=== PATIENT | female | born 1950 | race Caucasian/White ===

== ENCOUNTER 2020-01-11 10:05 | Emergency (ER) | payer MEDICARE, BC ==
--- NOTE | 2020-01-11 10:21 | EDM.PDOC ---
ED HPI GENERAL MEDICAL PROBLEM - General Chief Complaint: Cardiovascular Problem Stated Complaint: Chest pain for a week Time Seen by Provider: 01/11/20 10:05 Source of Information: Reports: Patient History Limitations: Reports: No Limitations - History of Present Illness INITIAL COMMENTS - FREE TEXT/NARRATIVE: Patient states she has been having about a 2 out of 10 chest pain midsternal nonradiating for about 1 week now says it gets worse when she takes a deep breath or coughs she states she is been having a runny nose and cough intermittently since the fall secondary to allergies. She states this is nothing new her normal although she states the chest pain is little bit more aggravating. She has no known cardiovascular issues she has never had a cardio work-up She denies any shortness of breath although she states she feels a little weak over the last week as well. Says she has been eating and drinking and moving about the house normally and doing her daily activities with no issues. She has no other complaints at this time Duration: Week(s): Location: Reports: Chest Quality: Reports: Pressure Severity: Mild Improves with: Reports: Rest Worsens with: Reports: Breathing, Movement Associated Symptoms: Reports: No Other Symptoms Mid-Sternal Chest Pain Score (Numeric/FACES): 2 - Related Data Allergies Allergy/AdvReac Type Severity Reaction Status Date / Time amlodipine [From Lotrel] Allergy Cannot Verified 01/11/20 10:44 Remember amoxicillin Allergy Rash Verified 01/11/20 10:44 benazepril [From Lotrel] Allergy Cannot Verified 01/11/20 10:44 Remember latex Allergy Rash Verified 01/11/20 10:44 Home Meds: Home Meds Benzonatate [Tessalon Perle] 100 mg PO TID PRN 01/11/20 [History] Cholecalciferol (Vitamin D3) [Vitamin D3] 2,000 unit PO DAILY 01/11/20 [History] Clotrimazole/Betamethasone Dip [Lotrisone Cream] 1 dose TP BID PRN 01/11/20 [ History] Multivitamin-Min/Iron/FA/Vit K [Multi-Day Plus Minerals Tablet] 1 each PO DAILY 01/11/20 [History] Simvastatin 10 mg PO DAILY 01/11/20 [History] amLODIPine [Norvasc] 2.5 mg PO DAILY 05/04/20 [History] ED ROS GENERAL - Review of Systems Review Of Systems: See Below Constitutional: Reports: No Symptoms, Weakness. Denies: Fever, Chills, Malaise , Fatigue, Night Sweats HEENT: Reports: No Symptoms Respiratory: Reports: Pleuritic Chest Pain, Cough. Denies: Shortness of Breath , Wheezing Cardiovascular: Reports: Chest Pain. Denies: Blood Pressure Problem, Claudication, Dyspnea on Exertion, Edema, Lightheadedness, Orthopnea, Palpitations, PND, Syncope Endocrine: Reports: No Symptoms GI/Abdominal: Reports: No Symptoms : Reports: No Symptoms Musculoskeletal: Reports: No Symptoms Skin: Reports: No Symptoms Neurological: Reports: No Symptoms Psychiatric: Reports: No Symptoms Hematologic/Lymphatic: Reports: No Symptoms Immunologic: Reports: No Symptoms ED EXAM, GENERAL - Physical Exam Exam: See Below Exam Limited By: No Limitations General Appearance: Alert, WD/WN, No Apparent Distress Nose: Normal Inspection, Normal Mucosa, No Blood Throat/Mouth: Normal Inspection, Normal Lips, Normal Teeth, Normal Gums, Normal Oropharynx, Normal Voice, No Airway Compromise Neck: Normal Inspection, Supple, Non-Tender, Full Range of Motion Respiratory/Chest: No Respiratory Distress, Lungs Clear, Normal Breath Sounds, No Accessory Muscle Use, Chest Non-Tender Cardiovascular: Normal Peripheral Pulses, Regular Rate, Rhythm, No Edema, No Gallop, No JVD, No Murmur, No Rub GI/Abdominal: Normal Bowel Sounds, Soft, Non-Tender, No Organomegaly, No Distention. No: Guarding, Rigid, Rebound, Tender Back Exam: Normal Inspection, Full Range of Motion Extremities: Normal Inspection, Normal Range of Motion, Non-Tender, No Pedal Edema Neurological: Alert, Oriented, CN II-XII Intact, Normal Cognition, Normal Gait, No Motor/Sensory Deficits Psychiatric: Normal Affect, Normal Mood Skin Exam: Warm, Dry, Intact, Normal Color, No Rash Course - Vital Signs Text/Narrative:: EKG CBC BMP troponin chest x-ray aspirin All lab work within normal limits glucose is noted to be 135 EKG chest x-ray no acute processes Patient was instructed to follow-up with a primary care provider Last Recorded V/S: Last Vital Signs Temp 37.2 C 01/11/20 10:05 Pulse 93 01/11/20 10:05 Resp 16 01/11/20 10:05 BP 135/81 01/11/20 10:05 Pulse Ox 97 01/11/20 10:05 - Orders/Labs/Meds Orders: Active Orders 24 hr Category Date Time Status EKG 12 Lead [EKG Documentation Completion] [RC] STAT Care 01/11/20 10:15 Active Labs: Laboratory Tests 01/11/20 01/11/20 01/11/20 Range/Units 10:28 10:28 10:32 WBC 4.7 (4.0-10.0) x10^3/uL RBC 4.45 (4.00-5.50) x10^6/uL Hgb 12.9 (12.0-16.0) g/dL Hct 38.6 (33.0-47.0) % MCV 86.7 (78.0-93.0) fL MCH 29.0 (26.0-32.0) pg MCHC 33.4 (32.0-36.0) g/dL RDW Coeff of Maya 11.4 (10.0-15.0) % Plt Count 259 (130-400) x10^3/uL Neut % (Auto) 57.0 (50.0-80.0) % Lymph % (Auto) 26.2 (25.0-50.0) % [place] % (Auto) 12.6 H (2.0-11.0) % Eos % (Auto) 3.6 (0.0-4.0) % Baso % (Auto) 0.6 (0.2-1.2) % Sodium 145 (136-145) mmol/L Potassium 4.0 (3.5-5.1) mmol/L Chloride 108 H (98-107) mmol/L Carbon Dioxide 25 (21-32) mmol/L Anion Gap 16.0 (10-20) mmol/L BUN 18 (7-18) mg/dL Creatinine 0.8 (0.55-1.02) mg/dL Est Cr Clr Drug Dosing TNP Estimated GFR (MDRD) > 60 Glucose 135 H (74-106) mg/dL Calcium 9.6 (8.5-10.1) mg/dL POC Troponin I 0.00 (0.00-0.08) ng/mL Meds: Medications Discontinued Medications Generic Name Dose Route Start Last Admin Trade Name Freq PRN Reason Stop Dose Admin Aspirin 324 mg 05/04/20 10:25 01/11/20 10:26 Aspirin PO 01/11/20 10:26 324 mg ONETIME ONE Administration Ondansetron HCl 4 mg 01/11/20 10:47 01/11/20 10:56 Zofran Odt PO 01/11/20 10:48 4 mg ONETIME ONE Administration Departure - Departure Time of Disposition: 10:45 Disposition: Home, Self-Care 01 Condition: Good Clinical Impression: Non-cardiac chest pain Forms: ED Department Discharge Sepsis Event Note - Focused Exam Vital Signs: Vital Signs Temp Pulse Resp BP Pulse Ox 01/11/20 10:05 37.2 C 93 16 135/81 97 Date Exam was Performed: 01/11/20 Time Exam was Performed: 10:58 - Problem List & Annotations (1) Non-cardiac chest pain SNOMED Code(s): 161761141 Code(s): R07.89 - OTHER CHEST PAIN Status: Acute Current Visit: Yes - My Orders Last 24 Hours: My Active Orders 01/11/20 10:15 EKG 12 Lead [EKG Documentation Completion] [RC] STAT - Assessment/Plan Last 24 Hours: My Active Orders 01/11/20 10:15 EKG 12 Lead [EKG Documentation Completion] [RC] STAT
[2020-01-11] MEDS: Aspirin 81 MG Tab.Chew PO ONE (10:26)
--- NOTE | 2020-01-11 10:45 | CR ---
[id number] RAD/RAD Chest PA or AP 1V EXAM: FRONTAL CHEST INDICATION: Chest pain. COMPARISON: None. DISCUSSION: The lungs are mildly hypoinflated, but clear. The heart is normal in size. IMPRESSION: 1. Low lung volumes. Otherwise negative exam. Terrell Antoine MD 01/11/20 1044 Thank you for allowing us to participate in the care of your patient.
[2020-01-11 10:49] LABS: CHLORIDE,CL 108 mmol/L (98-107); SODIUM,NA 145 mmol/L (136-145)
[2020-01-11 10:53] VITALS: BP 135/81; PULSE 93
[2020-01-11] MEDS: Ondansetron 4 MG Tab.DIS PO ONE (10:56)
== END 2020-01-11 11:10 | disposition home or self-care (01) ==
LOC: VM.ED 10:05
DX: R07.89 Other chest pain (principal); Z88.8 Allergy status to other drugs, medicaments and biological substances; Z88.1 Allergy status to other antibiotic agents; Z91.040 Latex allergy status; Z79.899 Other long term (current) drug therapy
CPT/HCPCS: 36415; 71045; 80048; 84484; 85025; 93005; 99284-GF; 99285-25; A9270-GY